=== PATIENT | male | born 1970 | race Caucasian/White ===

== ENCOUNTER 2016-12-12 05:22 | Day surgery (SDC) | payer OTHER ==
[2016-12-09 15:20] VITALS: BMI 30.3
[~2016-12-12] VITALS: Ht 177.8 cm; Wt 96.9 kg
[2016-12-12] VITALS (15 sets, daily range): BP systolic 114–180; BP diastolic 80–100; PULSE 64–129; RESP 16–32; Ht 177.8 cm; Wt 96.9 kg
[2016-12-12] MEDS ORDERED: LIDOCAINE 2% (SDV) 5 ML INJ ONE (06:42)
[2016-12-12] MEDS ORDERED: ROCURONIUM 50 MG INJ ONE (06:42)
[2016-12-12] MEDS ORDERED: PROPOFOL 20 ML ONE ×2 (06:42→08:18)
[2016-12-12] MEDS ORDERED: SUCCINYLCHOLINE CHLORIDE 100 MG/5 ML SYG IV ONE (06:42)
[2016-12-12] MEDS ORDERED: EPINEPHrine 1 MG/ML 30 ML INJ ONE (06:48)
[2016-12-12] MEDS ORDERED: ROPIVACAINE 0.5 % 30 ML VIAL ONE ×2 (06:48→08:13)
[2016-12-12] MEDS ORDERED: POVIDONE IODINE 10% 28.4 GM OINT ONE (06:49)
[2016-12-12] MEDS ORDERED: POLYMYXIN/BACITRACIN 1L IRRIG ONE (06:49)
[2016-12-12] MEDS ORDERED: SOD CHLORIDE 0.9% 1,000 ML IV SCH (06:49)
--- NOTE | 2016-12-12 06:49 | HPN ---
Date/Time of Note Date/Time of Note DATE: 12/12/16 TIME: 06:48 Interval H&P Admission Note Pt. seen H&P reviewed: No system changes MARNIE SCHILLING MD Dec 12, 2016 06:48
[2016-12-12] MEDS ORDERED: OXYCODONE/ACETAMINOPHEN (5/325) TAB PO PRN ×2 (07:00)
[2016-12-12] MEDS ORDERED: morphine 2 MG INJ IV PRN (07:00)
[2016-12-12] MEDS ORDERED: ONDANSETRON 4 MG INJ IV PRN ×2 (07:00→11:30)
[2016-12-12] MEDS ORDERED: FENTAnyl 50 MCG/ML VIAL ONE (08:13)
[2016-12-12] MEDS ORDERED: FAMOTIDINE 20 MG INJ ONE (08:18)
[2016-12-12] MEDS ORDERED: METOCLOPRAMIDE 10 MG INJ ONE (08:18)
[2016-12-12] MEDS ORDERED: ONDANSETRON 4 MG INJ ONE (08:18)
[2016-12-12] MEDS ORDERED: CEFAZOLIN 1 GM INJ ONE (08:18)
[2016-12-12] MEDS ORDERED: DEXAMETHASONE 4 MG/ML 1 ML INJ ONE (08:18)
[2016-12-12] MEDS ORDERED: hydrALAzine 20 MG INJ ONE (09:14)
[2016-12-12] MEDS ORDERED: HYDROmorphONE 2 MG/ML SYG ONE (11:06)
[2016-12-12] MEDS ORDERED: HYDROmorphONE (0.2 MG/ML) 10ML SYG IV PRN ×3 (11:30)
[2016-12-12] MEDS ORDERED: PROCHLORPERAZINE 10 MG INJ IV PRN (11:30)
[2016-12-12] MEDS ORDERED: FENTAnyl 50 MCG/ML VIAL IV PRN ×3 (11:30)
[2016-12-12] MEDS ORDERED: MEPERIDINE 25 MG INJ IV PRN (11:30)
[2016-12-12] MEDS ORDERED: DIPHENHYDRAMINE 50 MG INJ IV PRN (11:30)
[2016-12-12] MEDS ORDERED: LABETALOL HCL 20MG INJ ONE (12:24)
[2016-12-12] MEDS ORDERED: LABETALOL HCL 20MG INJ IV PRN (12:27)
[2016-12-12] MEDS ORDERED: hydrALAzine 20 MG INJ IV PRN (12:30)
--- NOTE | 2016-12-12 13:09 | OPPN ---
Date/Time of Note Date/Time of Note DATE: 12/12/16 TIME: 13:08 Operative Report Preoperative Diagnosis left shoulder rotator cuff tear Postoperative Diagnosis same Operation/Procedure Performed left shoulder arthroscopy, rotator cuff repair, SAD, mini abdulaziz, biceps tenodesis Surgeon Zheng Lopez Anesthesia: general Estimated blood loss: minimal Transfusion Required none Specimen None Grafts/Implants none Complications none MARNIE SCHILLING MD Dec 12, 2016 13:09
--- NOTE | 2016-12-12 14:39 | OPR ---
DATE OF OPERATION: 12/12/2016 PREOPERATIVE DIAGNOSES: 1. Left shoulder impingement. 2. Rule out a tear of the biceps. 3. Massive tear rotator cuff with retraction. POSTOPERATIVE DIAGNOSES: 1. Left shoulder position. 2. Significant tear of the long head of the biceps. 3. Tear of the labrum and chondral malacia grade 2 with smaller grade 4 along the superior glenoid. 4. Full-thickness retracted tear of the rotator cuff, C3. SURGERY: 1. Arthroscopy, left shoulder. 2. Status debris in her shoulder. 3. Subacromial decompression. 4. Mini Ifeanyi excision under surface distal clavicle. 5. Repair rotator cuff with 3 triple loaded Super Revo screws. 6. Biceps tenodesis. Extremely complex difficult procedure as the patient's rotator cuff was retracted almost back to the glenoid. It was difficult to mobilize the rotator cuff and very difficult to get back and get it repaired. Because of these and the abnormal anatomy an additional 60 minutes was spent doing the surgery (22). SURGEON: Dr. Shayne Calzada. RATE MARKER: Nury Browning. ANESTHESIA: General with an interscalene block. OPERATIVE PROCEDURE: Patient taken to the operating room and placed in supine position, satisfactory interscalene block was given and satisfactory general anesthesia administered. The patient rolled in the right lateral decubitus position, secured with chandler bag kidney rest, extra rolls and were carefully padded. Exam under anesthesia will full range of motion. No instability. 2 g Ancef intravenously. The left shoulder was prepped and draped in usual manner and suspended in traction. Posterior and anterior portals were used. The biceps had a significant split tear for a long the length of it and was felt tenodesis was indicated. There was tearing of the posterior labrum, posterior recess was intact. There was chondromalacia grade 2, slight area grade 4, chondromalacia superiorly. Rotator cuff had a significant tear retracted back almost to the glenoid. The humeral head had some intermittent chondromalacia grade 1-2, partial tear of subscapularis and the anterior ligaments were intact. Shaver was inserted. The labrum anteriorly was also torn and was debrided. The posterior labrum was debrided and the biceps was debrided. We felt after careful look that indeed tenodesis needed to be done and it was not viable. The rotator cuff was debrided. Chondroplasty performed along the glenoid and along the humeral head. A spinal needle was used to pass a number 1PDS through the biceps and then number 2 FiberWire was passed with a special hitch knot in the biceps and the biceps was cut with elective surgery. Liberator was used to free up the rotator cuff to try to mobilize as much as possible. Our attention was then turned to the shoulder bursa. Subtotal bursectomy was performed. Extensive amount of bursitis throughout the shoulder and this was excised in total. SUBACROMIAL DECOMPRESSION. Electrosurgery was used to seal all the soft tissue off the undersurface of the acromion. The acromion had about a 5 mm spur the entire subacromial space was cleared of debris. Bur was used to remove bone from posterior to anterior and 5 mm was excised. The coracoacromial ligament was released with elective surgery. Once the acromion was completely flat we then worked on the clavicle. MINI IFEANYI PROCEDURE. The underserved distal clavicle was exposed circumferentially with electrosurgery. Soft tissue was removed with a shaver. Bur was used to remove about a third of the under surface of the distal clavicle. Once this was done, our attention was turned to the rotator cuff. ROTATOR CUFF. The rotator cuff was very carefully evaluated. It was debrided back to reasonably healthy tissue, it was not the best tissue, 3 triple loaded Super Revo screws were then inserted sequentially using curved and straight passers. The sutures were passed through the rotator cuff. The first suture was passed anteriorly passed through the rotator cuff and through the biceps as was the second suture. The remaining sutures were passed only through the rotator cuff. The sutures were then sequentially tied with SMC knots. Excellent fixation and closure of the rotator cuff was seen. Multiple holes were made more distally on the greater tuberosity to facilitate bleeding. The shoulder was irrigated clear. Wounds were closed with 3-0 black nylon, Steri- Strips, compression dressing was applied and the patient was placed in UltraSling. One additional gram of Ancef was given intravenously. We tied the first 2 sutures anteriorly this tenodesed the biceps and reinforced the rotator cuff tear. LENGTH CONTROL TESTER ORTHOPEDIC SURGEON. During the procedure assistant auditor orthopedic surgeon was used at my request. The assistant auditor helped with manipulating the shoulder and the arthroscope. Machine Heddle Cleaner also passed the sutures while I grasped them in order to facilitate repair of the rotator cuff. Without a skilled orthopedic surgeon assistant auditor this procedure could not have been done. Therefore, should be compensated appropriately. Dictated By: Shayne Calzada MD /stephen/[email or web address] /Document#: [id number]
== END 2016-12-12 14:55 | disposition home or self-care (01) ==
LOC: SDS 05:22 → SUR 05:22
PROVIDERS: ATTEND Orthopaedic Surgery
DX: M25.812 Other specified joint disorders, left shoulder (principal); S43.492D Other sprain of left shoulder joint, subsequent encounter; S46.112D Strain of muscle, fascia and tendon of long head of biceps, left arm, subsequent encounter; X58.XXXD Exposure to other specified factors, subsequent encounter; M75.102 Unspecified rotator cuff tear or rupture of left shoulder, not specified as traumatic
CPT/HCPCS: 29826; 29827; 29828; J0171; J0360; J0690; J1100; J1170; J2405; J2765; J2795; J3010; J7999